=== PATIENT | female | born 2000 | race Two or more races ===

== ENCOUNTER → 2025-03-06 | Outpatient (CLI) | payer MEDICAID, SELFPAY ==
--- NOTE | 2025-03-06 13:37 | XR_ITS ---
Examination: PA lateral chest 2 views TECHNIQUE: Upright PA lateral chest 2 views Date and time: March 06, 2025 1432 hours INDICATIONS: Coughing bronchitis episodes post Covid infection one year ago. FINDINGS: Normal heart size. No mediastinal lymphadenopathy. No pneumonia or pulmonary edema No bronchiectasis pattern or pulmonary scarring IMPRESSION: No active disease.
== END | disposition home or self-care (01) ==
LOC: CDIM 13:16
PROVIDERS: Referring Provider Nurse Practitioner Family; Visit Provider Nurse Practitioner Family
DX: J40 Bronchitis, not specified as acute or chronic (principal); U09.9 Post COVID-19 condition, unspecified
CPT/HCPCS: 71046